=== PATIENT | female | born 1995 | race Hispanic/Latino ===

== ENCOUNTER 2017-08-20 07:58 | Day surgery (SDC) | payer MEDICAID, OTHER ==
[2017-08-20 08:55] VITALS: BP 120/63; TEMP 98.2; BMI 41.7
== END 2017-08-20 10:00 | disposition home or self-care (01) ==
LOC: L&D/OP 07:58
PROVIDERS: ATTEND Obstetrics & Gynecology Obstetrics
DX: O99.89 Other specified diseases and conditions complicating pregnancy, childbirth and the puerperium (principal); M54.5 Low back pain; Z3A.37 37 weeks gestation of pregnancy
CPT/HCPCS: 99281

== ENCOUNTER 2017-09-04 15:22 | Inpatient (IN) | payer OTHER ==
[2017-09-04 16:02] VITALS: BMI 42.5
--- NOTE | 2017-09-04 16:07 | PDOC.LDHP ---
Labor and Delivery H&P Chief complaint: contractions HPI: 22 yo @ 39.1wks by 12.5wk US c/w LMP presents with contractions. Denies fluid loss, vaginal bleeding, vaginal discharge. Denies recent illness. Current gestational age (weeks): 39 (39.1) Due date: 09/10/16 Dating criteria: last menstrual period, other (12.5) Grav: 2 Para: 1 OB History Details: 1st : , gbs + Current complications: none Abnormal US findings: No Current medications: pre- vitamins Previous surgical history: none Social history: none - Physical Exam Vital signs reviewed and normal: yes General: NAD, resting Heart: RRR Lungs: CTAB Abdomen: NTTP Extremeties: no edema FHT: category 1 [place] contractions every: 5-6minutes - Vaginal Exam cm dilated: 4 Effacement: 100% Station: -2 - OB Labs Blood type: O RH: positive Antibody Screen: negative HIV: negative RPR: negative HEPSAg: positive GBS: positive Urine drug screen: not done Rubella: immune Additional Labs: flu vaccine given. - Assessment L&D Assessment: term patient in labor (latent) - Plan Plan: observation in L&D <Laura Arellano - Last Filed: 09/04/17 16:33> <Elliott Bernard - Last Filed: 09/04/17 20:59> Allergies/Adverse Reactions: Allergies Allergy/AdvReac Type Severity Reaction Status Date / Time ferrous sulfate Allergy Rash Verified 09/04/17 16:13 Attending Addendum - Attending Addendum I personally evaluated the patient and discussed the management with Dr. Edouard and Patty. I agree with the History, Examination, Assessment and Plan documented above with any addition or exceptions noted below. GBS ppx, augmentation as indicated, epidural upon request. Anticipate . <Elliott Bernard - Last Filed: 09/04/17 20:59>
[2017-09-04] MEDS ORDERED: Penicillin G Potassium 5 MILL.UNITS VIAL ONE (16:23)
[2017-09-04] MEDS ORDERED: Acetaminophen 325 MG TAB PO PRN ×2 (16:40→19:37)
[2017-09-04] MEDS: Lactated Ringer's 1,000 ML IV SCH ×2 (18:05→18:55)
[2017-09-04] MEDS ORDERED: Fentanyl 4 mcg/Marc 0.1% Cadd 100 ML ONE (18:22)
[2017-09-04] MEDS ORDERED: Ondansetron HCl/PF 4 MG/2 ML Vial IVP PRN ×2 (18:28→19:37)
[2017-09-04] MEDS ORDERED: Docusate 100 MG CAP PO PRN (18:28)
[2017-09-04] MEDS ORDERED: LR / Pitocin 40 units/1000 ml 1,000 ML IV PRN (18:28)
[2017-09-04] MEDS ORDERED: Promethazine HCl 25 MG/ML VIAL IM PRN ×2 (18:28→19:37)
[2017-09-04] MEDS ORDERED: Acetaminophen 500 MG TAB PO PRN (18:28)
[2017-09-04] MEDS ORDERED: Lidocaine 1% (PF) 30 ML VIAL SC PRN (18:28)
[2017-09-04] MEDS ORDERED: Ibuprofen 800 MG TAB PO PRN (18:28)
[2017-09-04] MEDS ORDERED: Penicillin G Potassium 5 MILL.UNITS in Sodium Chloride 0.9% 100 ML IVPB SCH (18:30)
[2017-09-04 18:53] LABS: Hemoglobin 10.2 g/dL (12.0-16.0); Mean Corpuscular HGB CONC 33.1 g/dL (32.0-36.0); Mean Corpuscular Hemoglobin 27.9 pg (27.0-31.0); Mean Corpuscular Volume 84.4 fl (81.0-99.0); Mean Platelet Volume 7.9 fL (7.4-10.4); Platelet Count 408 thou/uL (130-400); RBC Distribution Width 12.8 % (11.5-14.5); Red Blood Cell (RBC) Count 3.66 mill/uL (4.20-5.40); White Blood Cell (WBC) Count 9.7 thou/uL (4.8-10.8)
[2017-09-04 19:37] LABS: HBSAB Concentration 1.14 mIU/mL; HBSAg Index 0.14 S/CO (0-0.99); Hep B Surf AB Non-Reactive (NonReactive); Hep B Surf Ag Non-Reactive S/CO (NonReactive)
[2017-09-04] MEDS ORDERED: Eucerin (Mineral Oil/Petrolatum,White) 30 gm Jar TOP PRN (19:37)
[2017-09-04] MEDS ORDERED: diphenhydrAMINE 50 MG/ML VIAL IVP PRN (19:37)
[2017-09-04] MEDS ORDERED: Naloxone HCl 0.4 mg/ml Vial IVP PRN ×2 (19:37)
[2017-09-04] MEDS ORDERED: Lactated Ringer's 500 ML IV PRN (19:37)
[2017-09-04] MEDS ORDERED: ePHEDrine/0.9% NaCl/PF SYRINGE 50 mg/10 ml SLOW IVP PRN (19:37)
[2017-09-04] MEDS ORDERED: Communication Order-Pharmacy FS SCH (19:45)
[2017-09-04] MEDS ORDERED: Fentanyl 4mcg/Marcaine 0.1% Cassette 100 ML EPIDURAL SCH (19:45)
--- NOTE | 2017-09-04 23:06 | PDOC.LDPN ---
Labor & Delivery Progress Note - Subjective Subjective: comfortable - Objective Vital signs reviewed and normal: yes General: NAD Uterine fundus: non tender SVE: /-1 Dilation: 6 Effacement: 90% Station: -1 FHT: category 1, early decelerations [place] contractions every: q3-4min Other exam findings: baseline 150's, no accels, early decels, mod variability AROM: clear fluid IUPC placed: yes Resuscitative measures: maternal position change - Assessment (1) Multigravida in third trimester Code(s): Z34.83 - ENCOUNTER FOR SUPRVSN OF NORMAL , THIRD TRIMESTER Current Visit: Yes Status: Acute Comment: at 39.1 by LMP/12.5 sono in active labor. OB Hx: prior GBS positive: PCN x1 thus far AROM and IUPC placed. Patient without change from prior check. Will consider augmenting with pitocin at next check if inadequate MVU's and no change. Cat1 strip. Continue routine care for vaginal delivery. <Rubi Main - Last Filed: 09/04/17 23:03> Attending Addendum - Attending Addendum I personally evaluated the patient and discussed the management with ob team. I agree with the History, Examination, Assessment and Plan documented above with any addition or exceptions noted below. Begin pitocin if ctx are not adequate. <Elliott Bernard - Last Filed: 09/05/17 00:36>
[2017-09-05] MEDS ORDERED: LR 500 ML/Oxytocin 10 units 500 ML IV SCH (00:45)
[2017-09-05] MEDS: Penicillin G 2.5 MILL.units 2.5 MILL.UNITS in Premix Bag 1 BAG IVPB SCH ×3 (00:47→03:58)
[2017-09-05] MEDS ORDERED: Fentanyl 100 MCG/2 ML VIAL ONE (02:04)
[2017-09-05] MEDS: Lactated Ringer's 1,000 ML IV SCH ×2 (02:33→05:19)
[2017-09-05] MEDS ORDERED: Acetaminophen 325 MG TAB PO PRN (02:39)
--- NOTE | 2017-09-05 05:52 | PDOC.LDPN ---
Labor & Delivery Progress Note - Subjective Subjective: painful contractions - Objective Vital signs reviewed and normal: yes General: NAD Uterine fundus: palpable contractions SVE: 10/100/0 Dilation: 10 Effacement: 100% Station: 0 FHT: category 2, variable decelerations [place] contractions every: q3-4min Other exam findings: baseline 160's, 1 variable decelaration, no accels, moderate variability AROM: clear fluid IUPC placed: yes Resuscitative measures: maternal position change - Assessment (1) Multigravida in third trimester Code(s): Z34.83 - ENCOUNTER FOR SUPRVSN OF NORMAL , THIRD TRIMESTER Current Visit: Yes Status: Acute Comment: at 39.1 by LMP/12.5 sono in active labor. OB Hx: prior GBS positive: PCN x3 thus far Patient complete but still high, will allow to labor down for some time. Cat 2 strip. Continue routine care for vaginal delivery. <Rubi Main - Last Filed: 09/05/17 05:50> Attending Addendum - Attending Addendum I personally evaluated the patient and discussed the management with Dr. Main. Labor down. PCN for ppx. <Elliott Bernard - Last Filed: 09/05/17 07:19>
--- NOTE | 2017-09-05 07:18 | PDOC.OPDEL ---
OB Operative/Delivery Note Delivery Dr/Surgeon: Jose David Bernard Pre-Delivery Diagnosis: active labor Procedure/Post Delivery Dx: spontaneous vaginal delivery Weeks gestation: 39 Anesthesia: epidural - Additional Findings/Plan Placenta delivered: spontaneous Repaired Obstetrical Laceration: none Estimated blood loss: 400 Compilations/Other Findings: No immediate complications Post delivery plan: routine recovery Attending Addendum - Attending Addendum I was present for the entire delivery with Dr. Main. GBS+ with adequate ppx. s/p to viable term male, apgars 8/9. delivered atraumatically , YENY, with no nuchal cord. Optimal clamping performed, cord cut, blood sampled. Placenta delivered via CCT. Uterus firmed with manual massage and IV pitocin. No lacerations noted. EBL 400. Counts correct.
[2017-09-05] MEDS ORDERED: Milk Of Magnesia 30 ML UDCUP PO PRN (07:56)
[2017-09-05] MEDS ORDERED: Lanolin Ointment 7 GM TUBE TOP PRN (07:56)
[2017-09-05] MEDS ORDERED: Bisacodyl 10 MG SUPP PR PRN (07:56)
[2017-09-05] MEDS ORDERED: Preparation H Ointment 28 GM TUBE PR PRN (07:56)
[2017-09-05] MEDS ORDERED: Adacel (T-DAP) 0.5 ML VIAL IM ONE (07:56)
[2017-09-05] MEDS ORDERED: LR / Pitocin 40 units/1000 ml 1,000 ML IV SCH (07:56)
--- NOTE | 2017-09-05 08:19 | DN-2 ---
DELIVERING PHYSICIAN: Rubi Main D.O. ATTENDING PHYSICIAN: Dr. Elliott Bernard PROCEDURE: Spontaneous vaginal delivery. ANESTHESIA: Epidural. ESTIMATED BLOOD LOSS: 400 mL. PREOPERATIVE DIAGNOSES: 1. Term intrauterine in labor. 2. GBS positive. POSTOPERATIVE DIAGNOSES: 1. Term intrauterine , delivered. 2. GBS positive. 3. tachycardia. INDICATIONS: A 22-year-old female, presenting in latent labor to L&D was checked 4 hours later and had made change and was in an active labor. DELIVERY NOTE: This is a 22-year-old female G2, P1-0-0-1 at 39 and 2 weeks who delivered a viable ma le at 0657 on 09/05/2017. Following an intrapartum course complicated by mild tachycard ia x1 hour with baseline of 170s, a vigorous male was delivered over an intact perineum in the OA pos ition. Anterior shoulder and then remainder of body was delivered. No nuchal cord. The baby was pl aced skin to skin on mom for to allow delay of the cord clamping for 1 minute. Then, cord was clampe d and cut and cord blood was collected. Placenta was delivered intact with a 3-vessel cord noted. F undal massage was performed and the fundus was firm. Cervix and vagina were inspected and found to b e free of lacerations. Infant went to Nursery in good condition for routine care after 1 cheko r of skin to skin with the mother. Apgars were 8 and 9 at 1 and 5 minutes, respectively. The patien t tolerated delivery well and went to after routine recovery.
--- NOTE | 2017-09-05 12:41 | PDOC.PP ---
Post Progress Note Post Day #: 0 Subjective: 22 yo -->2 delivered via @ 39.1 wks on 09/05/2017 @ 0645 without complications. Pt was ordering breakfast and endorsed some pain. No complaints this morning. PO intake tolerated: yes Flatus: no Ambulation: no Vital Signs (12 hours) Temp Pulse Resp BP 09/05/17 11:05 99 18 117/65 09/05/17 10:15 99 F 79 18 09/05/17 10:05 99 F 79 18 113/56 L 09/05/17 08:35 99.5 F 99 18 Weight Weight 102.058 kg - Physical Examination General: NAD Cardiovascular: no m/r/g Respiratory: clear to auscultation bilaterally Abdominal: lochia, appropriately TTP Neurological: no gross focal deficits Psychiatric: A&Ox3, normal affect Result Diagrams: 09/04/17 18:05 Additional Labs: Post Labs Blood Type O POSITIVE 09/04/17 18:05 Hep Bs Antigen Non-Reactive S/CO (NonReactive) 09/04/17 18:05 (1) (normal spontaneous vaginal delivery) Code(s): O80 - ENCOUNTER FOR FULL-TERM UNCOMPLICATED DELIVERY Status: Acute (2) Term delivered Code(s): O80 - ENCOUNTER FOR FULL-TERM UNCOMPLICATED DELIVERY Status: Acute - Assessment/Plan 22 yo ->2 @ 39.1wks now s/p . Plan: Encourage PO intake, ambulation. Will dc [place] and monitor I/O's. Mom was GBS positive, adequately treated. <Laura Arellano - Last Filed: 09/05/17 12:38> Vital Signs (12 hours) Temp Pulse Resp BP 09/05/17 11:05 99 18 117/65 09/05/17 10:15 99 F 79 18 09/05/17 10:05 99 F 79 18 113/56 L 09/05/17 08:35 99.5 F 99 18 Weight Weight 102.058 kg Result Diagrams: 09/04/17 18:05 Additional Labs: Post Labs Blood Type O POSITIVE 09/04/17 18:05 Hep Bs Antigen Non-Reactive S/CO (NonReactive) 09/04/17 18:05 <Luis Wise - Last Filed: 09/05/17 14:47> Attending Addendum - Attending Addendum I personally evaluated the patient and discussed the management with Dr. Arelalno. I agree with the History, Examination, Assessment and Plan documented above with any addition or exceptions noted below. <Luis Wise - Last Filed: 09/05/17 14:47>
[2017-09-05] MEDS: Prenatal Vitamin 1 TAB PO SCH (13:48)
[2017-09-05] MEDS: Docusate Calcium (SURFAK) 240 MG CAP PO SCH ×2 (13:48→21:23)
[2017-09-05] MEDS: Ibuprofen 800 MG TAB PO SCH ×2 (14:02→21:23)
[2017-09-05] MEDS ORDERED: Lidocaine 2% PF 10 ML AMP (For Epidural Use) ONE (16:16)
[2017-09-05] MEDS ORDERED: Bupivacaine PF 0.5% 30 ML VIAL ONE (16:16)
[2017-09-05] MEDS ORDERED: Bupivacaine HCl 0.5%/Epinephrine 1:200,000/PF 30 ml Vial ONE (16:16)
[2017-09-06] MEDS: Ibuprofen 800 MG TAB PO SCH (06:01)
--- NOTE | 2017-09-06 07:45 | PDOC.PP ---
Post Progress Note Post Day #: 1 Subjective: 22 yo -->2 s/p @ 39.1wks on 09/05/2017 to a TAGA male, without complications. Mom is voiding and stooling adequately, tolerating a normal diet , ambulating, and has minimal lochia and without pain. PO intake tolerated: yes Flatus: yes Ambulation: yes Vital Signs (12 hours) Temp Pulse Resp BP 09/06/17 04:46 97.7 F 85 18 123/68 09/06/17 00:43 98.3 F 91 18 119/57 L Weight Weight 102.058 kg - Physical Examination General: NAD Cardiovascular: no m/r/g, RRR Respiratory: clear to auscultation bilaterally, non-labored breathing Abdominal: + bowel sounds, lochia (minimal), no distention Fundus firm & at: at the umbilicus Neurological: no gross focal deficits Psychiatric: A&Ox3, normal affect Result Diagrams: 09/04/17 18:05 Additional Labs: Post Labs Blood Type O POSITIVE 09/04/17 18:05 Hep Bs Antigen Non-Reactive S/CO (NonReactive) 09/04/17 18:05 (1) (normal spontaneous vaginal delivery) Code(s): O80 - ENCOUNTER FOR FULL-TERM UNCOMPLICATED DELIVERY Status: Acute (2) Term delivered Code(s): O80 - ENCOUNTER FOR FULL-TERM UNCOMPLICATED DELIVERY Status: Acute - Assessment/Plan 22 yo -->2 s/p @ 39.1wks on 09/05/2017 to a TAGA male, without complications, GBS +, adequately treated, doing well . Plan: Okay to discharge home today. Recommend follow-up in 4-6 weeks . <Laura Arellano - Last Filed: 09/06/17 10:15> Vital Signs (12 hours) Temp Pulse Resp BP 09/06/17 08:44 98.6 F 71 20 113/50 L 09/06/17 08:00 97.7 F 85 18 09/06/17 04:46 97.7 F 85 18 123/68 09/06/17 00:43 98.3 F 91 18 119/57 L Weight Weight 102.058 kg Result Diagrams: 09/04/17 18:05 Additional Labs: Post Labs Blood Type O POSITIVE 09/04/17 18:05 Hep Bs Antigen Non-Reactive S/CO (NonReactive) 09/04/17 18:05 <Luis Wise - Last Filed: 09/06/17 12:27> Attending Addendum - Attending Addendum I personally evaluated the patient and discussed the management with Dr. Arellano. I agree with the History, Examination, Assessment and Plan documented above with any addition or exceptions noted below. <Luis Wise - Last Filed: 09/06/17 12:27>
[2017-09-06 08:45] VITALS: BP 113/50; TEMP 98.6
[2017-09-06] MEDS: Prenatal Vitamin 1 TAB PO SCH (09:05)
[2017-09-06] MEDS: Docusate Calcium (SURFAK) 240 MG CAP PO SCH (09:05)
== END 2017-09-06 12:08 | disposition home or self-care (01) | DRG 775 ==
LOC: L&D/OP 15:22 → L&D 09-05 01:50 → 3SW 09-05 10:05
PROVIDERS: ADMIT Student in an Organized Health Care Education/Training Program; ATTEND Student in an Organized Health Care Education/Training Program
PROC: 10E0XZZ Delivery of Products of Conception, External Approach (ICD-10-PCS; principal; 2017-09-05)
PROC: 4A0HXCZ Measurement of Products of Conception, Cardiac Rate, External Approach (ICD-10-PCS; 2017-09-05)
DX: O99.214 Obesity complicating childbirth (principal); Z68.41 Body mass index [BMI] 40.0-44.9, adult; E66.01 Morbid (severe) obesity due to excess calories; O99.824 Streptococcus B carrier state complicating childbirth; O76 Abnormality in fetal heart rate and rhythm complicating labor and delivery; Z3A.39 39 weeks gestation of pregnancy; Z37.0 Single live birth
CPT/HCPCS: 51702; 85027; 86706; 87340; 90715; 99285; J0670; J2001; J2405; J2540; J3010; J7050; S0020

== ENCOUNTER 2017-09-13 12:45 | Emergency (ER) | payer OTHER ==
[2017-09-13 13:43] LABS: #Eosinphils 0.1 thou/uL (0.0-0.7); #Lymphocytes 1.6 thou/uL (1.20-3.40); #Monocytes 0.3 thou/uL (0.11-0.59); #Neutrophils 5.2 thou/uL (1.40-6.50); %Basophils 0.3 % (0.0-1.0); %Eosinophils 1.7 % (0.0-10.0); %Lymphocytes 22.1 % (21.0-51.0); %Monocytes 4.6 % (0.0-10.0); %Neutrophils 71.3 % (42.0-75.0); Mean Corpuscular HGB CONC 31.8 g/dL (32.0-36.0); Mean Corpuscular Hemoglobin 27.2 pg (27.0-31.0); Mean Corpuscular Volume 85.7 fl (81.0-99.0); Mean Platelet Volume 7.1 fL (7.4-10.4); Platelet Count 544 thou/uL (130-400); RBC Distribution Width 13.3 % (11.5-14.5); Red Blood Cell (RBC) Count 4.02 mill/uL (4.20-5.40); White Blood Cell (WBC) Count 7.3 thou/uL (4.8-10.8)
[2017-09-13] MEDS ORDERED: Morphine 4 MG/ML VIAL ONE (13:46)
[2017-09-13] MEDS ORDERED: Ondansetron HCl/PF 4 MG/2 ML Vial ONE (13:46)
[2017-09-13 14:05] LABS: ALT (SGPT) 16 U/L (8-55); AST (SGOT) 13 U/L (5-34); Albumin 3.7 g/dL (3.5-5.0); Alkaline Phosphatase 142 U/L (40-150); Anion Gap 14 mmol/L (10-20); BUN (Urea Nitrogen) 9 mg/dL (7.0-18.7); Bilirubin, Total 0.6 mg/dL (0.2-1.2); Calc. Creatinine Clearance 0 mL/min (70-130); Calcium 9.5 mg/dL (7.8-10.44); Carbon Dioxide 23 mmol/L (22-29); Chloride 105 mmol/L (98-107); Estimated GFR-MDRD Greater than 90; Globulin 3.4 g/dL (2.4-3.5); Glucose 89 mg/dL (70-105); Lipase 10 U/L (8-78); Potassium 4.1 mmol/L (3.5-5.1); Protein, Total 7.1 g/dL (6.0-8.3); Sodium 138 mmol/L (136-145)
[2017-09-13 14:18] LABS: Bilirubin Negative (Negative); Blood, Urine Large (Negative); Clarity CLOUDY (Clear); Glucose, Urine (Dipstick) Negative (Negative); Leukocyte Large (Negative); Nitrite Negative (Negative); Protein, Urine (Dipstick) 30 mg/dL (Neg-Trace); Specific Gravity, Urine 1.019 (1.002-1.036); pH, Urine 6.5 (5.0-9.0)
[2017-09-13 14:29] LABS: Bacteria/HPF None Seen HPF (None Seen); Hyaline Casts/LPF 0-3 HYALINE CAST LPF (0-3 Hyaline); Pathc Cast-AUWi Flag 0.94 (0-2.49); RBC/HPF GREATER THAN 50-TNTC HPF (0-3); Squamous Epithelial 0-3 HPF (0-3)
--- NOTE | 2017-09-13 14:42 | ULT ---
PELVIC ULTRASOUND: Date: 09/13/17 HISTORY: Pelvic pain and vaginal bleeding. FINDINGS: Multiple transabdominal sonographic images of the pelvis are obtained. The uterus demonstrates mild heterogeneity and is mildly enlarged, measuring 14.5 cm x 10.7 cm x 6.3 cm. The endometrium is thickened, measuring 1.5 cm, with fluid in the endometrial canal, with echogen ic material also seen which may be related to debris or possibly hemorrhage. The fallopian tubes are not visualized bilaterally. Bilateral ovaries are visualized and have a chang l sonographic appearance. The right ovary measures 3.5 cm x 2.7 cm x 2.5 cm. The left ovary measures 3.3 cm x 2.2 cm x 1.6 cm. Doppler evaluation of each ovary with spectral analysis and color flow evaluation demonstrates arteri al flow in each ovary. No free fluid is seen in the cul-de-sac. IMPRESSION: 1. Thickened fluid-filled endometrium with a small amount of debris. Findings may be related to hemo rrhage given patient's history of vaginal bleeding. 2. Mild enlargement of the uterus which demonstrates slight heterogeneity. 3. Normal appearing bilateral ovaries. 4. Ectopic cannot be excluded based on sonographic evaluation. POS: [facility]
[2017-09-16 00:56] LABS: Chlamydia by PCR Not Detected (NotDetected); GC by PCR Not Detected (NotDetected)
== END 2017-09-13 15:50 | disposition home or self-care (01) ==
LOC: ERS 12:45
DX: O86.20 Urinary tract infection following delivery, unspecified (principal)
CPT/HCPCS: 36415; 76856; 80053; 81003; 81015; 83690; 85025; 85652; 86140; 87077; 87086; 87480; 87491; 87510; 87591; 87660; 93976; 96361; 96374; 96375; J2270; J2405

== ENCOUNTER 2019-10-05 17:02 | Inpatient (IN) | payer OTHER ==
[2019-10-05 17:51] VITALS: BMI 47.0
[2019-10-05] MEDS ORDERED: hydrALAZINE 20 MG/ML VIAL SLOW IVP PRN ×2 (18:34→20:13)
[2019-10-05] MEDS ORDERED: FLU VACC QS2019-20(6MOS UP)/PF 60 MCG/0.5 ML SYRINGE IM ONE (19:00)
--- NOTE | 2019-10-05 19:08 | PDOC.FPROB ---
FMR OB H&P: HPI - History of Present Illness History of Present Illness: Pt is a 24 yo at 38 weeks dated by 22.6 sono, NURYS 10/19/19, who presents from clinic with SBP 156/157. She had blurry vision w/o spots and sweaty palms at this time. She experienced this for 2 weeks. She is noted to have worsening vision for 2 years and not seen by eye doctor. Otherwise pt denies RHOADES , RUQ pain, SOB, chest pain, LE edema, oliguria. PNC - Brett FMR OB H&P: Current - Care : 3 Para: 2 Gestational age: 38 weeks Due date: 10/19/19 Dating Criteria: 22.6 week sono Course/Complications: Elevated BP's - OB Labs Blood type: O RH: positive Antibody Screen: negative HIV: negative RPR: negative HepBsAg: negative 1 hour gtt: 126 FMR OB H&P: History - Past Medical History PMH: Denies - OB History OB History: Chorioamnioitis - [employer] History [employer] History: None - Surgical History Sx History: Denies - Social History Social History: Lives with 2 children. No tobacco, drugs, alcohol. - Family History Family History: Non-contributory FMR OB H&P: Medications - Current Home Medications: Medication Instructions Recorded Confirmed Type Vit37/Iron/Folic Acid 1 tab PO DAILY 10/05/19 10/05/19 History [[place] Chewable Tablet] Allergies/Adverse Reactions: Allergies Allergy/AdvReac Type Severity Reaction Status Date / Time ferrous sulfate Allergy Rash Verified 09/04/17 16:13 FMR OB H&P: ROS - Review of Systems General: denies: fever/chills, weight/appetite/sleep changes Eyes: reports: vision changes. denies: scotomas, floaters ENT: denies: nasal congestion, rhinorrhea Cardiovascular: denies: chest pain, palpitation Respiratory: denies: cough, congestion Gastrointestinal: denies: abdominal pain, indigestion, nausea, vomiting, diarrhea, constipation Genitourinary (Female): reports: vaginal pressure. denies: incontinence, dysuria, vaginal discharge, vaginal pain, vaginal bleeding, contractions Musculoskeletal: denies: pain, stiffness Neurologic: denies: numbness, syncope, headache FMR OB H&P: Vital Signs - Maternal Vital signs: 129/70 pulse 96 - Heart Tones Baseline: 135 Variability: moderate Acceleration: present Deceleration: absent FMR OB H&P: Physical Exam - Physical Exam General: NAD, awake, alert and oriented HEENT: PERRLA, EOMI Heart: RRR, normal S1/S2, no edema General: CTAB, no respiratory distress, good air movement, no wheezing Abdomen: soft, gravid, non-tender, bowel sound present Musculoskeletal: pulses present, FROM in all four extremities Neurological: cranial nerves II through XII intact Skin: good tugor, capillary refill <2 seconds Lymphatic: no purpura, no petechia Psychiatric: good judgement and insight - Pelvic Exam Presentation: Cephalic FMR OB H&P: A/P - Problem List (1) Elevated blood pressure affecting in third trimester, antepartum Current Visit: Yes Status: Acute Code(s): O16.3 - UNSPECIFIED MATERNAL HYPERTENSION, THIRD TRIMESTER (2) Multigravida in third trimester Current Visit: No Status: Acute Code(s): Z34.83 - ENCOUNTER FOR SUPRVSN OF NORMAL , THIRD TRIMESTER Comment: at 39.1 by LMP/12.5 sono in active labor. OB Hx: prior GBS positive: PCN x3 thus far Patient complete but still high, will allow to labor down for some time. Cat 2 strip. Continue routine care for vaginal delivery. Disposition: Pt is a 24 yo at 38 weeks dated by 22.6 weeks sono, NURYS 10/19/19, who presents from clinic with elevated BP's: # Elevated Blood Pressures affecting third trimester Pt had elevated BP's at the clinic, SBP 157 highest, and referred to L&D. Initially pt had SBP's 120's/130's. Pt had a BP 180's during interview although this could be secondary to movement, poor cuff placement. Follow up SBP was 161. Pt was asymptomatic at this time. - Start work up for Pre-E - Monitor blood pressures at this time - Will perform cervical check Discussion: Date/Time: 10/05/191901 This H&P was discussed with Dr. Caceres and Dr. West who agree with the above documentation and plan. Addendum - Attending - Attending Attestation Date/Time: 10/05/192016 I personally evaluated the patient and discussed the management with Dr. High. I agree with the History, Examination, Assessment and Plan documented above.
[2019-10-05 19:39] LABS: #Basophils 0.1 thou/uL (0.0-0.2); #Eosinphils 0.1 thou/uL (0.0-0.7); #Lymphocytes 2.3 thou/uL (1.20-3.40); #Monocytes 0.6 thou/uL (0.11-0.59); #Neutrophils 7.5 thou/uL (1.40-6.50); %Basophils 0.5 % (0.0-1.0); %Eosinophils 0.9 % (0.0-10.0); %Lymphocytes 21.4 % (21.0-51.0); %Monocytes 5.6 % (0.0-10.0); %Neutrophils 71.6 % (42.0-75.0); Hemoglobin 11.8 g/dL (12.0-16.0); Mean Corpuscular HGB CONC 33.2 g/dL (32.0-36.0); Mean Corpuscular Hemoglobin 29.3 pg (27.0-31.0); Mean Corpuscular Volume 88.2 fL (78.0-98.0); Mean Platelet Volume 8.4 fL (7.4-10.4); Platelet Count 353 thou/uL (130-400); RBC Distribution Width 12.2 % (11.5-14.5); Red Blood Cell (RBC) Count 4.04 mill/uL (4.20-5.40); White Blood Cell (WBC) Count 10.5 thou/uL (4.8-10.8)
[2019-10-05 19:43] LABS: Creatinine, Urine 260.26 mg/dL (47-110)
[2019-10-05 20:00] LABS: ALT (SGPT) 21 U/L (8-55); AST (SGOT) 16 U/L (5-34); Albumin 3.5 g/dL (3.5-5.0); Alkaline Phosphatase 277 U/L (40-110); Anion Gap 13 mmol/L (10-20); BUN (Urea Nitrogen) 9 mg/dL (7.0-18.7); Bilirubin, Total 0.5 mg/dL (0.2-1.2); Calc. Creatinine Clearance 252 mL/min (70-130); Carbon Dioxide 20 mmol/L (22-29); Chloride 108 mmol/L (98-107); Estimated GFR-MDRD Greater than 90; Globulin 3.5 g/dL (2.4-3.5); Glucose 90 mg/dL (70-105); Potassium 4.2 mmol/L (3.5-5.1); Sodium 137 mmol/L (136-145)
[2019-10-05] MEDS ORDERED: Ondansetron PF 4 MG/2 ML Vial IVP PRN (20:13)
[2019-10-05] MEDS ORDERED: NS / Oxytocin 40 units/1000ml 1,000 ML IV PRN (20:13)
[2019-10-05] MEDS ORDERED: Lidocaine 1% (PF) 30 ML VIAL SC PRN (20:13)
[2019-10-05] MEDS ORDERED: Promethazine HCl 25 MG/ML VIAL IM PRN (20:13)
[2019-10-05] MEDS ORDERED: Acetaminophen 500 MG TAB PO PRN (20:13)
[2019-10-05] MEDS ORDERED: Ibuprofen 800 MG TAB PO PRN (20:13)
[2019-10-05] MEDS ORDERED: Butorphanol Tartrate 1 MG/ML VIAL SLOW IVP PRN (20:13)
[2019-10-05] MEDS ORDERED: Penicillin G Potassium 5 MILL.UNITS in Sodium Chloride 0.9% 100 ML IVPB SCH (20:30)
--- NOTE | 2019-10-05 20:32 | PDOC.BPN ---
<Kit West - Last Filed: 10/05/19 20:30> - Brief Progress Note Labs reviewed and WNL. Pt has persistent elevated BPs although no severe range pressures. Given 38 weeks will admit to L&D for IOL 2/2 GHTN. Cervical exam /3. Vag cytotec to be placed. Pt wants epidural, will contact anesthesia when pt wishes to have epidural placed. GBS pos- begin ppx. <Nestor Caceres - Last Filed: 10/05/19 22:20> Addendum - Attending - Attending Attestation Date/Time: 10/05/19 2220 I personally evaluated the patient and discussed the management with Dr. West. I agree with the Assessment and Plan documented above.
[2019-10-05] MEDS ORDERED: NS w/ Oxytocin 10 units 500 ML IV SCH (20:45)
[2019-10-05 21:40] LABS: Syphilis Antibody Nonreactive (Nonreactive); Syphilis Antibody Index 0.04 S/CO (<1.00 Non-Reactive)
[2019-10-05] MEDS: Misoprostol 100 MCG TAB VAG SCH (21:55)
[2019-10-05] MEDS: Lactated Ringer's 1,000 ML IV SCH (21:56)
[2019-10-05 22:37] LABS: HBSAg Index 0.24 S/CO (0-0.99); Hep B Surf Ag Non-Reactive S/CO (NonReactive)
[2019-10-06] MEDS: Misoprostol 100 MCG TAB VAG SCH ×3 (02:31→06:25)
[2019-10-06] MEDS: Penicillin G 2.5 MILL.units 2.5 MILL.UNITS in Premix Bag 1 BAG IVPB SCH ×5 (03:20→20:25)
--- NOTE | 2019-10-06 03:35 | PDOC.LDPN ---
Labor & Delivery Progress Note - Subjective Subjective: comfortable, no concerns - Objective Vital signs reviewed and normal: yes General: NAD Dilation: 2 Effacement: 50% Station: -3 FHT: category 1 [place] contractions every: q3mins - Assessment (1) Elevated blood pressure affecting in third trimester, antepartum Code(s): O16.3 - UNSPECIFIED MATERNAL HYPERTENSION, THIRD TRIMESTER Current Visit: Yes Status: Acute (2) Multigravida in third trimester Code(s): Z34.83 - ENCOUNTER FOR SUPRVSN OF NORMAL , THIRD TRIMESTER Current Visit: No Status: Acute Comment: at 39.1 by LMP/12.5 sono in active labor. OB Hx: prior GBS positive: PCN x3 thus far Patient complete but still high, will allow to labor down for some time. Cat 2 strip. Continue routine care for vaginal delivery. Plan: continue plan of care -: Pt is a 24 yo at 38.1 weeks dated by 22.6 weeks sono, NURYS 10/19/19, who presents from clinic with elevated BP's: # Elevated Blood Pressures affecting third trimester # IOL Protein:creatinine ratio negative. Mg not initiated. Cytotec placed at 2155. 50/-3 at 0030 10/06/19. - place second dose of cytotec - Monitor blood pressures at this time - recheck at 0430. Addendum - Attending - Attending Attestation Date/Time: 10/06/19 [id number] I personally evaluated the patient and discussed the management with Dr. High. I agree with the Assessment and Plan documented above.
[2019-10-06] MEDS: NS w/ Oxytocin 10 units 500 ML IV SCH (11:14)
[2019-10-06] MEDS: Lactated Ringer's 1,000 ML IV SCH (12:11)
--- NOTE | 2019-10-06 13:19 | PDOC.LDPN ---
Labor & Delivery Progress Note - Subjective Subjective: comfortable - Objective Vital signs reviewed and normal: yes General: NAD Uterine fundus: non tender SVE: 13:15 Dilation: 4 Effacement: 50% Station: -3 FHT: category 1, variability present [place] contractions every: q1-2 min AROM: clear fluid FSE placed: yes - Assessment (1) Gestational hypertension Code(s): O13.9 - GESTATIONAL HTN W/O SIGNIFICANT PROTEINURIA, UNSP TRIMESTER Current Visit: Yes Status: Acute (2) Multigravida in third trimester Code(s): Z34.83 - ENCOUNTER FOR SUPRVSN OF NORMAL , THIRD TRIMESTER Current Visit: No Status: Acute Plan: continue plan of care, pitocin for augmentation -: Continue pitocin for augmentation. FSE placed as heart tones difficult to pick up operator with position changes due to maternal habitus. Clear fluid with AROM when FSE placed. Contractions q2-3 minutes. Continue position changes. Patient does not desire epidural at this time.
[2019-10-06] MEDS ORDERED: Fentanyl 4 mcg/Bup 0.1% Cadd 100 ML ONE (19:25)
[2019-10-06] MEDS ORDERED: diphenhydrAMINE 50 MG/ML VIAL IVP PRN (19:39)
[2019-10-06] MEDS ORDERED: Ondansetron PF 4 MG/2 ML Vial IVP PRN (19:39)
[2019-10-06] MEDS ORDERED: Acetaminophen 325 MG TAB PO PRN (19:39)
[2019-10-06] MEDS ORDERED: ePHEDrine/0.9% NaCl/PF SYRINGE 50 mg/10 ml SLOW IVP PRN (19:39)
[2019-10-06] MEDS ORDERED: Naloxone HCl 0.4 mg/ml Vial IVP PRN ×2 (19:39)
[2019-10-06] MEDS ORDERED: Promethazine HCl 25 MG/ML VIAL IM PRN (19:39)
[2019-10-06] MEDS ORDERED: Lactated Ringer's 500 ML IV PRN (19:39)
[2019-10-06] MEDS ORDERED: Fentanyl 4 mcg/Bupivacaine 0.1% Cassette 100 ML EPIDURAL SCH (19:45)
[2019-10-06] MEDS ORDERED: Communication Order-Pharmacy FS SCH (19:45)
--- NOTE | 2019-10-06 22:06 | PDOC.LDPN ---
Labor & Delivery Progress Note - Subjective Subjective: comfortable - Objective Abnormal vital signs: A few BP's noted to be >140/90 but <160/110 General: NAD, resting Uterine fundus: non tender SVE: 22:00 Dilation: 7 Effacement: 90% Station: -1 FHT: category 1, variability present [place] contractions every: q1-3 min - Assessment (1) Gestational hypertension Code(s): O13.9 - GESTATIONAL HTN W/O SIGNIFICANT PROTEINURIA, UNSP TRIMESTER Current Visit: Yes Status: Acute (2) Multigravida in third trimester Code(s): Z34.83 - ENCOUNTER FOR SUPRVSN OF NORMAL , THIRD TRIMESTER Current Visit: No Status: Acute Plan: continue plan of care -: Continue augmentation with pitocin. Cervical exam /. Adequate MVU's. Patient now with epidural and resting comfortably.
[2019-10-07] MEDS ORDERED: hydrALAZINE 20 MG/ML VIAL SLOW IVP PRN (01:53)
[2019-10-07] MEDS ORDERED: Bisacodyl 10 MG SUPP PR PRN (01:53)
[2019-10-07] MEDS ORDERED: Ondansetron PF 4 MG/2 ML Vial IVP PRN (01:53)
[2019-10-07] MEDS ORDERED: diphenhydrAMINE 25 MG CAP PO PRN (01:53)
[2019-10-07] MEDS ORDERED: NS / Oxytocin 40 units/1000ml 1,000 ML IV SCH (01:53)
[2019-10-07] MEDS ORDERED: Benzocaine-Menthol 82.5 ML CAN TOP PRN (01:53)
[2019-10-07] MEDS ORDERED: Preparation H Ointment 57 gram tube RC PRN (01:53)
[2019-10-07] MEDS ORDERED: Lanolin Ointment 7 GM TUBE TOP PRN (01:53)
[2019-10-07] MEDS ORDERED: Milk Of Magnesia 30 ML UDCUP PO PRN (01:53)
[2019-10-07] MEDS: Ibuprofen 800 MG TAB PO SCH ×3 (06:03→21:36)
[2019-10-07] MEDS: Penicillin G 2.5 MILL.units 2.5 MILL.UNITS in Premix Bag 1 BAG IVPB SCH ×2 (07:43→07:45)
[2019-10-07] MEDS: Lactated Ringer's 1,000 ML IV SCH (07:44)
[2019-10-07] MEDS: Misoprostol 100 MCG TAB VAG SCH (07:44)
[2019-10-07] MEDS: NS w/ Oxytocin 10 units 500 ML IV SCH (07:45)
[2019-10-07] MEDS: Ferrous Sulfate 325 MG TAB PO SCH ×2 (08:56→14:36)
[2019-10-07] MEDS ORDERED: Adacel (T-DAP) 0.5 ML SYRINGE IM ONE (09:00)
[2019-10-07] MEDS: Prenatal Vitamin 1 TAB PO SCH (09:09)
[2019-10-07] MEDS: Docusate Calcium (SURFAK) 240 MG CAP PO SCH ×2 (09:09→21:36)
[2019-10-07] MEDS ORDERED: Sodium Chloride 0.9% 10 ML ONE (11:35)
[2019-10-08 01:48] VITALS: TEMP 97.6
[2019-10-08] MEDS: Ibuprofen 800 MG TAB PO SCH (05:29)
--- NOTE | 2019-10-08 08:17 | DN ---
DATE OF PROCEDURE: 10/07/2019 DELIVERING PHYSICIAN: Dr. Flaca Snell. PROCEDURE PERFORMED: Spontaneous vaginal delivery. ANESTHESIA: Epidural. ESTIMATED BLOOD LOSS: 50 mL. PREOPERATIVE DIAGNOSES: 1. Term intrauterine . 2. Gestational hypertension. 3. Maternal obesity. 4. GBS positive. POSTOPERATIVE DIAGNOSES: 1. Term intrauterine , delivered. 2. Gestational hypertension. 3. Maternal obesity. 4. GBS positive, adequately treated. INDICATIONS: This is a 24-year-old female, G3, P 2-0-0-2, who presents to Labor and Delivery with elevated blood pressures and was noted to have gestational hypertension. She was then induced at 38 and 1 weeks for gestational hypertension. DELIVERY NOTE: This is a 24-year-old female, G3, P 2-0-0-2 at 38 and 2 weeks, who delivered a viable male infant at 0001 hours on 10/07/2019. Following an uneventful intrapartum course, a vigorous male infant was delivered over intact perineum in the occiput anterior position. Nuchal cord x1, which was reduced prior to the delivery of the anterior shoulder. After delivery of anterior shoulder, the remainder of the body was delivered. Head was held down, and mouth and nares were bulb suctioned. Cord was clamped and cut and cord blood collected. Placenta was delivered intact with a 3-vessel cord noted. Fundal massage was performed, and the fundus was firm. The cervix and vagina were inspected and found to be free of lacerations. Infant went to [facility] in good condition for routine care. Apgars were 9 and 9 at 1 and 5 minutes respectively. The patient tolerated delivery well and went to after routine recovery/care. Addendum: I was present and supervising the delivery of Ms Cai's baby. I agree with the above documentation. Job ID: [id number] MTDD
[2019-10-08 08:21] VITALS: BP 111/58
--- NOTE | 2019-10-08 08:38 | PDOC.PP ---
Post Progress Note Post Day #: 1 Subjective: 24 y/o , delivered via on 10/07 @ 00:01. EBL 50ml no lacs Pt denies any pain, states she is having minimal lochia. She reports having X2 BM's. Denies CP, SOB. PO intake tolerated: yes Flatus: yes Ambulation: yes Vital Signs (12 hours) Temp Pulse Resp BP BP Pulse Ox 10/08/19 08:20 97.6 F 76 20 111/58 L 99 10/08/19 00:00 97.6 F 91 18 123/58 L 96 Weight Weight 112.945 kg - Physical Examination General: NAD Cardiovascular: no m/r/g, RRR Respiratory: clear to auscultation bilaterally, non-labored breathing Abdominal: + bowel sounds, lochia, no distention, appropriately TTP Fundus firm & at: umbilicus Extremities: negative homans (B) Neurological: no gross focal deficits Psychiatric: A&Ox3, normal affect Result Diagrams: 10/05/19 19:23 10/05/19 19:23 Additional Labs: Post Labs Blood Type O POSITIVE 10/05/19 20:33 Hep Bs Antigen Non-Reactive S/CO (NonReactive) 10/05/19 20:28 (1) Gestational hypertension Code(s): O13.9 - GESTATIONAL HTN W/O SIGNIFICANT PROTEINURIA, UNSP TRIMESTER Status: Acute (2) (normal spontaneous vaginal delivery) Code(s): O80 - ENCOUNTER FOR FULL-TERM UNCOMPLICATED DELIVERY Status: Acute (3) Term delivered Code(s): O80 - ENCOUNTER FOR FULL-TERM UNCOMPLICATED DELIVERY Status: Acute - Assessment/Plan 24 y/o at 38 weeks dated by 22.6 sono, delivered vis on 10/07 @ 00:01 1. Post normal day #1 -Pt tolerated procedure well -continue routine post- care - minimal lochia, denies current pain. - breast and bottle feeding 2. Gestation HTN - Q4H vitals - BP's have been within normal range Dispo: stable, possible d/c home today pending baby's bili.
[2019-10-08] MEDS: Prenatal Vitamin 1 TAB PO SCH (09:19)
[2019-10-08] MEDS: Docusate Calcium (SURFAK) 240 MG CAP PO SCH (09:19)
[2019-10-08] MEDS: Ferrous Sulfate 325 MG TAB PO SCH (09:19)
== END 2019-10-08 14:00 | disposition home or self-care (01) | DRG 807 ==
LOC: L&D/OP 17:02 → L&D 20:13 → 3SW 10-07 02:54
PROVIDERS: ADMIT Obstetrics & Gynecology; ATTEND Obstetrics & Gynecology
PROC: 3E0P7VZ Introduction of Hormone into Female Reproductive, Via Natural or Artificial Opening (ICD-10-PCS; 2019-10-05)
PROC: 4A0HXCZ Measurement of Products of Conception, Cardiac Rate, External Approach (ICD-10-PCS; 2019-10-05)
PROC: 10907ZC Drainage of Amniotic Fluid, Therapeutic from Products of Conception, Via Natural or Artificial Opening (ICD-10-PCS; 2019-10-06)
PROC: 10E0XZZ Delivery of Products of Conception, External Approach (ICD-10-PCS; principal; 2019-10-07)
DX: O13.4 Gestational [pregnancy-induced] hypertension without significant proteinuria, complicating childbirth (principal); Z37.0 Single live birth; Z3A.38 38 weeks gestation of pregnancy; O99.824 Streptococcus B carrier state complicating childbirth; O99.214 Obesity complicating childbirth; E66.9 Obesity, unspecified; O69.81X0 Labor and delivery complicated by cord around neck, without compression, not applicable or unspecified
CPT/HCPCS: 36415; 51702; 80053; 82570; 84156; 85025; 86780; 86850; 86900; 86901; 87340; 99285; J2405; J2540; J2590; J3490